=== PATIENT | female | born 1945 | race Two or more races ===

== ENCOUNTER 2025-10-04 10:42 | Emergency (ER) | payer MEDICARE, OTHER ==
[~2025-10-04] VITALS: Ht 167.6 cm; Wt 72.3 kg
--- NOTE | 2025-10-04 10:54 | ECG ---
[facility] Test Date: 2025-10-04 Test Time: 10:50:25 Pat Name: NICOLE ROBERTS Department: Room: Gender: F [employer]: FIORDALIZA : 1945 Requested By: RAVEN KYLE Order Number: [id number] Reading MD: William Schmidt Measurements Intervals [place] Rate: 115 P: 68 [place]: 178 QRS: -64 QRSD: 59 T: 19 QT: 375 QTc: 519 Interpretive Statements Sinus tachycardia Probable left atrial enlargement Left axis deviation Low voltage, precordial leads Borderline T abnormalities, diffuse leads Prolonged QT interval Electronically Signed On 10-06-2025 19:45:24 PST by William Schmidt Please click the below link to view image of tracing.
[2025-10-04 11:06] LABS: Base Excess -3.6 mmol/L (-2.0-3.0)
--- NOTE | 2025-10-04 11:52 | ED.PDOC ---
SOB-HPI HPI Comments 80y F who presents to the ED via EMS for chief complaint of inhalation injury. EMS states pt lives with spouse and has noted history of dementia on hospice and quantitative research analyst was checking on pt and noted smell of gas with noted pt and spouse found on the floor and EMS was called. EMS notes on arrival, 1 of 2 burners was on and the smell of gas was noted throughout the home. Loadmaster noted pt despite history of dementia, pt was altered compared to baseline. EMS notes pt was pale but otherwise had stable vitals and has since become more alert and oriented but notes pt was incontinent. Pt in the ED, otherwise has stable vitals and otherwise denies any symptoms at this time. 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 Family History Family History: Reviewed,noncontributory to illness Social History Smoker: Non-Smoker Alcohol: Denies ETOH Use Drugs: Denies Drug Use Lives In: Home Constitutional: reports: malaise, weakness; denies: chills, diaphoresis, fatigue, fever, sweats, others EENTM: denies: blurred vision, double vision, ear bleeding, ear discharge, ear drainage, ear pain, ear ringing, eye pain, eye redness, hearing loss, mouth pain, mouth swelling, nasal discharge, nose bleeding, nose congestion, nose pain, photophobia, tearing, throat pain, throat swelling, voice changes, others Respiratory: denies: cough, hemoptysis, orthopnea, SOB at rest, shortness of breath, SOB with excertion, stridor, wheezing, others Cardiovascular: denies: chest pain, dizzy spells, diaphoresis, Dyspnea on exertion, edema, irregular heart beat, left arm pain, lightheadedness, palpitations, PND, syncope, others Gastrointestinal: denies: abdomen distended, abdominal pain, blood streaked bowels, constipated, diarrhea, dysphagia, difficulty swallowing, hematemesis, melena, nausea, poor appetite, poor fluid intake, rectal bleeding, rectal pain, vomiting, others Genitourinary: denies: abnormal vagina bleeding, burning, dyspareunia, dysuria, flank pain, frequency, hematuria, incontinence, pain, , vagina discharge, urgency, others Neurological: denies: dizziness, fainting, headache, left sided numbness, left sided weakness, numbness, paresthesia, pre-existing deficit, right sided numbness, right sided weakness, seizure, speech problems, tingling, tremors, weakness, others Musculoskeletal: denies: back pain, gout, joint pain, joint swelling, muscle pa in, muscle stiffness, neck pain, others Integumetry: denies: bruises, change in color, change in hair/nails, dryness, laceration, lesions, lumps, rash, wounds, others Allergic/Immunocompromised: denies: Difficulty Healing, Frequent Infections, Hives, Itching, others Hematologic/Lymphatic: denies: anemia, blood clots, easy bleeding, easy bruising, swollen glands, others Endocrine: denies: excessive hunger, excessive sweating, excessive thirst, excessive urination, flushing, intolerance to cold, intolerance to heat, unexplained weight gain, unexplained weight loss, others Psychiatric: denies: anxiety, bipolar disorder, depression, hopeless, panic disorder, schizophrenia, sleepless, suicidal, others All Other Systems: Reviewed and Negative Physical Exam General Appearance: No Apparent Distress, Normal HEENT: Normal ENT Inspection, Pharynx Normal, TMs Normal Neck: Full Range of Motion, Non-Tender, Normal, Normal Inspection Respiratory: Chest Non-Tender, Lungs Clear, No Accessory Muscle Use, No Respiratory Distress, Normal Breath Sounds Cardiovascular: No Edema, No JVD, No Murmur, No Gallop, Normal Peripheral Pulses, Regular Rate/Rhythm Breast Exam: Deferred Gastrointestinal: No Organomegaly, Non Tender, No Pulsatile Mass, Normal Bowel Sounds, Soft Genitalia: Deferred Pelvic: Deferred Rectal: Deferred Extremities: No calf tenderness, Normal capillary refill, Normal inspection, Normal range of motion, Non-tender, No pedal edema Musculoskeletal : Apperance: Normal Neurologic: Alert, toolroom checker II-XII nml as Tested, No Motor Deficits, Normal Affect, Normal Mood, No Sensory Deficits, Other (Slow to answer questions) Cerebellar Function: Normal Reflexes: Normal Skin: Dry, Normal Color, Warm Lymphatic: No Adenopathy EKG EKG : Pulse Rate (adult): 115 [place]: LAD Cardiac Rhythm: ST Comments Prolonged QTC. No evidence of STEMI. Was a procedure done? Was a procedure done?: No Differential Dx Differential Diagnosis: COPD, Respiratory Distress Comments inhalation injury, dementia on hospice, metabolic encephalopathy, UTI , CO poisoning, X-Ray, Labs, Meds, VS Vital Signs Date Time Temp Pulse Resp B/P (MAP) Pulse Ox O2 Delivery O2 Flow Rate FiO2 10/04/25 15:39 98.9 105 19 149/119 (129) 97 98.9 10/04/25 10:50 115 10/04/25 10:45 98.6 115 16 146/78 99 98.6 Lab Test 10/04/25 15:00 10/04/25 12:42 10/04/25 11:37 10/04/25 10:58 Range/Units Troponin I High Sensitivity 3 L < 3 L < 3 L </=34 ng/L White Blood Count 7.3 4.4-10.8 10^3/uL Red Blood Count 4.08 4.0-5.20 10^6/uL Hemoglobin 11.9 L 12.2-16.2 g/dL Hematocrit 36.2 36.0-46.0 % Mean Corpuscular Volume 88.6 80.0-100.0 fL Mean Corpuscular Hemoglobin 29.1 28.0-32.0 pg Mean Corpuscular Hemoglobin Concent 32.9 32.0-36.0 g/dL Red Cell Distribution Width 15.0 H 11.8-14.3 % Platelet Count 277 140-450 10^3/uL Mean Platelet Volume 8.7 6.9-10.8 fL Neutrophils (%) (Auto) 77.8 37.0-80.0 % Lymphocytes (%) (Auto) 14.2 10.0-50.0 % Monocytes (%) (Auto) 6.6 0.0-12.0 % Eosinophils (%) (Auto) 0.4 0.0-7.0 % Basophils (%) (Auto) 1.0 0.0-2.0 % Neutrophils # (Auto) 5.7 1.6-8.6 10 ^3/uL Lymphocytes # (Auto) 1.0 0.4-5.4 10 ^3/uL Monocytes # (Auto) 0.5 0-1.3 10 ^3/uL Eosinophils # (Auto) 0 0-0.8 10 ^3/uL Basophils # (Auto) 0.1 0-0.2 10 ^3/uL Nucleated Red Blood Cells 0.1 % Sodium Level 142 136-145 mmol/L Potassium Level 3.6 3.5-5.1 mmol/L Chloride Level 106 98-107 mmol/L Carbon Dioxide Level 25 20-31 mmol/L Anion Gap 11 5-15 Blood Urea Nitrogen 20 9-23 mg/dL Creatinine 0.69 0.550-1.02 mg/dL Glomerular Filtration Rate Calc 88 >90 mL/min BUN/Creatinine Ratio 29.0 H 10.0-20.0 Serum Glucose 102 74-106 mg/dL Lactic Acid Level 1.6 0.4-2.0 mmol/L Calcium Level 9.5 8.7-10.4 mg/dL Phosphorus Level 3.3 2.4-5.1 mg/dL Magnesium Level 2.1 1.6-2.6 mg/dL Total Bilirubin 0.5 0.2-1.0 mg/dL Direct Bilirubin 0.1 <0.3 mg/dL Aspartate Amino Transferase (AST) 21 13-40 U/L Alanine Aminotransferase (ALT) 15 7-40 U/L Alkaline Phosphatase 161 H 46-116 U/L B-Type Natriuretic Peptide 20.99 0-100 pg/mL Total Protein 7.5 5.7-8.2 g/dL Albumin 4.6 3.2-4.8 g/dL Lipase 29 12-53 U/L Blood Gas Specimen Type Arterial Blood Gas Sample Site Right radial Blood Gas Patient Temperature 37.0 Arterial Blood Date Drawn [id number] Arterial Blood pH 7.410 7.350-7.450 Arterial Blood Partial Pressure CO2 32.6 32.0-45.0 mmHg Arterial Blood Partial Pressure O2 66.3 L 83.0-108.0 mmHg Arterial Blood HCO3 20.2 L 21.0-28.0 mmol/L Arterial Blood Oxygen Saturation 92.7 L 94.0-98.0 % Arterial Blood Base Excess -3.6 L -2.0-3.0 mmol/L Arterial Blood Oxyhemoglobin 91.3 L 94.0-98.0 % Arterial Blood Carboxyhemoglobin 1.0 0.5-1.5 % Arterial Blood Methemoglobin 0.5 0.0-1.5 % Arterial Blood Deoxyhemoglobin 7.2 H 0.0-5.0 % Georgi Test Yes Blood Gas Total Hemoglobin 12.60 12.0-16.0 g/dL Blood Gas Modality Room air FiO2 % 21.[address] [address] Ph: [phone] DIAGNOSTIC IMAGING Diagnostic Imaging Report : [id number] Signed PATIENT: NICOLE ROBERTS ACCT: [id number] UNIT: [id number] : 1945 LOC: ER ROOM / BED: / AGE / SEX: 80 / F ADM STATUS: REG ER SERVICE 1104 ORDERING PHYSICIAN: RAVEN KYLE MD PROCEDURE(s): HWOCT - HEAD WITHOUT CONTRAST REASON: altered ORDER NUMBER(s): [id number], ACCESSION NUMBER(s): [id number] EXAM: CT HEAD WITHOUT CONTRAST HISTORY: altered COMPARISON: None TECHNIQUE: Noncontrast axial CT images of the head were performed. Sagittal and coronal reformatted images were obtained. This CT exam was performed using 1 or more of the following dose reduction techniques: Automated exposure control, adjustment of the mA and/or kv according to patient size, or the use of iterative reconstruction techniques. Radiation Dose: CTDI volume is 49.52 mGy. Dose-length product is 891.43 mGy*cm FINDINGS: There is global brain atrophy. There is mild the decreased attenuation in the periventricular white matter. No intracranial hemorrhage, mass, midline shift, hydrocephalus, or evidence of acute large vessel infarct. The paranasal sinuses are clear. The bilateral mastoid air cells and middle ear spaces are clear. No cranial fracture or scalp edema. IMPRESSION: Global brain atrophy and chronic ischemic changes without evidence of acute intracranial process. ATED BY: DANIELLE IVAN MD DICTATED DATE/TIME: 10/04/251357 SIGNED BY: DANIELLE IVAN MD SIGNED DATE/TIME: 10/04/251357 CC: [address] [address] Ph: [phone] DIAGNOSTIC IMAGING Diagnostic Imaging Report : [id number] Signed PATIENT: NICOLE ROBERTS ACCT: [id number] UNIT: [id number] : 1945 LOC: ER ROOM / BED: / AGE / SEX: 80 / F ADM STATUS: REG ER SERVICE 1104 ORDERING PHYSICIAN: RAVEN KYLE MD PROCEDURE(s): CXR1 - CHEST XRAY 1 VIEW REASON: sob ORDER NUMBER(s): [id number], ACCESSION NUMBER(s): [id number] EXAM: XY CHEST XRAY 1 VIEW HISTORY: sob COMPARISON: None TECHNIQUE: Portable upright AP view of the chest was performed. FINDINGS: No pneumothorax, consolidative infiltrates, or pulmonary edema. There is hazy opacity in the right lung base, likely due to prominence of the pericardial fat pad. The heart is not enlarged. There is a moderate to large retrocardiac hiatal hernia. The left humeral head is high-riding and abuts the undersurface of the acromion, consistent with significant rotator cuff tendinopathy. IMPRESSION: 1. No acute intrathoracic process. 2. Moderate to large hiatal hernia. ATED BY: DANIELLE IVAN MD DICTATED DATE/TIME: 10/04/25 135 SIGNED BY: DANIELLE IVAN MD SIGNED DATE/TIME: 10/04/25 135 CC: X-Ray, Labs, Meds, VS Comment 80-year-old female here today for presentation as above initially concerning for carbon monoxide poisoning although ABG was reassuring against this. Overall the patient's workup was reassuring with no significant acute findings in the patient's lab testing, CT scan, nor chest x-ray. Plan was made to admit the patient for further workup and evaluation of her confusion. Patient stable for transfer to [place] as per consult note. Patient timed out for transfer however is boarding in the ER due to lack of beds. Discussed the case extensively by phone with Dr. Garcia from [facility] who will organize transfer for the patient, authorization number: [id number] Images Reviewed?: Images reviewed and evaluated by me Time of 1ST Reevaluation: 12:20 Reevaluation 1ST: Improved Patient Education/Counseling: Diagnosis, Treatment Family Education/Counseling: No Family Present SEPSIS Sepsis Screen Date sepsis recognized/suspect: Oct 04, 2025 Time Sepsis recognized/suspect: 1045 Recent Procedure: No On Antibiotic Therapy: No Respiratory Rate >20: No Heart Rate >90: Yes Temp<36 C (96.8 F) or >38.3 C: No SBP <90 or MAP <65 mmHG: No New Acute Mental Status Change: No Is the patient on CPAP, BIPAP,: No Physician Orders Abg W/ Co-Ox (10/04/25 10:48) Abg W/ Co-Ox (10/04/25 11:04) Urinalysis (10/04/25 11:04) Chest Xray 1 View (10/04/25 11:04) Head Without Contrast (10/04/25 11:04) Airplane Captain (10/04/25 ) Sodium Chloride 0.9% (10/04/25 17:45) Vital Signs Date Time Temp Pulse Resp B/P (MAP) Pulse Ox O2 Delivery O2 Flow Rate FiO2 10/04/25 15:39 98.9 105 19 149/119 (129) 97 98.9 10/04/25 10:50 115 10/04/25 10:45 98.6 115 16 146/78 99 98.6 Laboratory Tests Test 10/04/25 11:37 Lactic Acid Level 1.6 mmol/L (0.4-2.0) White Blood Count 7.3 10^3/uL (4.4-10.8) Departure 1 Departure Time of Disposition: 18:31 Impression: Primary Impression: Metabolic encephalopathy Additional Impressions: History of dementia Anemia Hiatal hernia Disposition: 02 SHORT TERM HOSPITAL Condition: Guarded Critical Care Note Critical Care Time?: Yes (30 min-critical care time only) Stability Stability form required: Yes Stable for transfer: Intended for transfer (Health plan request transfer) Comments Discussed the case extensively by phone with Dr. Garcia from [facility] who will organize transfer for the patient, authorization number: [id number] Heart Score Heart Score: Heart Score Response (Comments) Value History N/A 0 EKG N/A 0 Age N/A 0 Risk Factors N/A 0 Troponin N/A 0 Total 0 I personally scribed for RAVEN KYLE MD ([email or web address]) on 10/04/25 at 11:52. Electronically submitted by Peter Washburn ([facility]). I personally scribed for RAVEN KYLE MD ([email or web address]) on 10/04/25 at 14:43. Electronically submitted by Peter Washburn ([facility]). RAVEN KYLE MD Oct 04, 2025 11:52
[2025-10-04 12:00] LABS: Hematocrit 36.2 % (36.0-46.0); Hemoglobin 11.9 g/dL (12.2-16.2); Mean Corpuscular Hemoglobin 29.1 pg (28.0-32.0); Mean Corpuscular Volume 88.6 fL (80.0-100.0); Nucleated Red Blood Cells % 0.1 %
[2025-10-04 12:10] LABS: Lipase 29.0 U/L (12-53); Magnesium 2.1 mg/dL (1.6-2.6)
[2025-10-04 12:17] LABS: Alanine Aminotransferase 15 U/L (7-40); Albumin 4.6 g/dL (3.2-4.8); Anion Gap 11 (5-15); BUN/Creatinine Ratio 29.0 (10.0-20.0); Bilirubin, Direct 0.1 mg/dL (<0.3); Blood Urea Nitrogen 20 mg/dL (9-23); Calcium 9.5 mg/dL (8.7-10.4); Carbon Dioxide 25 mmol/L (20-31); Chloride 106 mmol/L (98-107); Glucose 102 mg/dL (74-106); Potassium 3.6 mmol/L (3.5-5.1); Sodium 142 mmol/L (136-145); Total Protein 7.5 g/dL (5.7-8.2)
[2025-10-04 12:18] LABS: Bilirubin, Total 0.5 mg/dL (0.2-1.0)
[2025-10-04 12:20] LABS: Alkaline Phosphatase 161 U/L (46-116)
--- NOTE | 2025-10-04 13:59 | DVH ---
EXAM: XY CHEST XRAY 1 VIEW HISTORY: sob COMPARISON: None TECHNIQUE: Portable upright AP view of the chest was performed. FINDINGS: No pneumothorax, consolidative infiltrates, or pulmonary edema. There is hazy opacity in the right lung base, likely due to prominence of the pericardial fat pad. The heart is not enlarged. There is a moderate to large retrocardiac hiatal hernia. The left humeral head is high-riding and abuts the undersurface of the acromion, consistent with significant rotator cuff tendinopathy. IMPRESSION: 1. No acute intrathoracic process. 2. Moderate to large hiatal hernia.
--- NOTE | 2025-10-04 14:00 | DVH ---
EXAM: CT HEAD WITHOUT CONTRAST HISTORY: altered COMPARISON: None TECHNIQUE: Noncontrast axial CT images of the head were performed. Sagittal and coronal reformatted images were obtained. This CT exam was performed using 1 or more of the following dose reduction techniques: Automated exposure control, adjustment of the mA and/or kv according to patient size, or the use of iterative reconstruction techniques. Radiation Dose: CTDI volume is 49.52 mGy. Dose-length product is 891.43 mGy*cm FINDINGS: There is global brain atrophy. There is mild the decreased attenuation in the periventricular white matter. No intracranial hemorrhage, mass, midline shift, hydrocephalus, or evidence of acute large vessel infarct. The paranasal sinuses are clear. The bilateral mastoid air cells and middle ear spaces are clear. No cranial fracture or scalp edema. IMPRESSION: Global brain atrophy and chronic ischemic changes without evidence of acute intracranial process.
[2025-10-04 19:50] VITALS: RESP 19; O2SAT 96
[2025-10-04] MEDS ORDERED: ALBUTEROL SULF 2.5 MG/0.5ML(0.5%) NEB SOLN ONE (21:40)
[2025-10-04 21:53] LABS: COVID19 ANTIGEN SOFIA FIA NEGATIVE (NEGATIVE)
[2025-10-04] MEDS: SODIUM CHLORIDE 0.9% 500 ML IV ONE (22:51)
[2025-10-04 22:59] VITALS: BP 119/72; PULSE 109; RESP 20; TEMP 98.2; O2SAT 96
== END 2025-10-04 22:58 | disposition short-term general hospital (02) ==
LOC: ER 10:42 → EDBD 10:42 → ER 22:58
DX: D64.9 Anemia, unspecified (principal); G93.41 Metabolic encephalopathy; F03.90 Unspecified dementia, unspecified severity, without behavioral disturbance, psychotic disturbance, mood disturbance, and anxiety; K44.9 Diaphragmatic hernia without obstruction or gangrene; Z20.822 Contact with and (suspected) exposure to COVID-19
CPT/HCPCS: 36415; 36600; 70450; 71045; 80048; 80076; 82805; 83605; 83690; 83735; 83880; 84100; 84484; 85025; 87426; 87804; 93005; 99291